=== PATIENT | female | born 1975 | race Caucasian/White ===

== ENCOUNTER 2021-04-04 08:53 | Emergency (ER) | payer OTHER ==
[~2021-04-04] VITALS: Ht 160 cm; Wt 77.1 kg
[~2021-04-04 08:53] MED LIST: ALPRAZOLAM1 MG PO; AMBIEN5 MG PO; BENZTROPINE MESY2 MG PO; DOC-Q-LACE100 MG PO; DOXEPIN HCL100 MG PO; OMEPRAZOLE20 MG PO; OMEPRAZOLE40 MG PO; RISPERDAL0.25 MG PO; RISPERIDONE4 MG PO; SILENOR3 MG PO; ZOLPIDEM TART12.5 MG PO
--- OUTSIDE RECORDS SUMMARY | 2021-04-04 08:56 | XMS ---
PreManage Notification: WOLFGANG BAI Security Inspector Wreath Events No recent Security Events currently on file CRITERIA MET - [facility] - [facility] - [facility] Care Guidelines CARE PROVIDERS CAESAR DUKE Physician Inspector Screen Printing Current PHONE: [phone] Guidelines Source: [facility] Guidelines Date: 12/25/2019 Care Coordination: Member is currently enrolled in Mental Health Services through [employer]. If services are needed through [employer] please call: Ronna [phone] Kash/[facility]; [phone] Crisis [phone] ETaiwo VISIT COUNT (12 MO.) 2 [facility] Shandra [address] [place] [address] TOTAL 3 NOTE: Visits indicate total known visits. ED/UCC VISIT TRACKING (12 MO.) 04/04/2021 08:54 [facility] [place] TYPE: Emergency COMPLAINT: - SKIN PROBLEM BUTTOCKS 07[facility]02/2020 [facility] DIAGNOSES: - Abscess - Cellulitis, unspecified - poss spider bite 05/15/2020 20:31 [facility] DIAGNOSES: - foreign object in vagina - Vaginal Swelling - Other specified noninflammatory disorders of vagina INPATIENT VISIT TRACKING (12 MO.) No inpatient visits to display in this time frame [id number]
[2021-04-04] MEDS ORDERED: METHADONE HCL5 MG PO (09:22)
[2021-04-04] MEDS ORDERED: CLEOCIN HCL300 MG PO (10:08)
== END 2021-04-04 10:19 | disposition home or self-care (01) ==
LOC: ED 08:53
DX: L03.317 Cellulitis of buttock (principal); J45.909 Unspecified asthma, uncomplicated; K21.9 Gastro-esophageal reflux disease without esophagitis; F17.200 Nicotine dependence, unspecified, uncomplicated; Z88.0 Allergy status to penicillin; Z79.899 Other long term (current) drug therapy
CPT/HCPCS: 99283; A9270

== ENCOUNTER 2022-03-18 11:45 | Emergency (ER) | payer OTHER ==
[~2022-03-18] VITALS: Ht 160 cm; Wt 71.7 kg
[~2022-03-18 11:45] MED LIST changes: +CLEOCIN HCL300 MG PO; +METHADONE HCL5 MG PO
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
== END 2022-03-18 14:19 | disposition left against medical advice (07) ==
LOC: ED 11:45
DX: Z02.89 Encounter for other administrative examinations (principal); F43.10 Post-traumatic stress disorder, unspecified; J45.909 Unspecified asthma, uncomplicated; K21.9 Gastro-esophageal reflux disease without esophagitis; F17.200 Nicotine dependence, unspecified, uncomplicated; Z88.1 Allergy status to other antibiotic agents; Z88.2 Allergy status to sulfonamides; Z88.8 Allergy status to other drugs, medicaments and biological substances; Z88.0 Allergy status to penicillin; Z79.899 Other long term (current) drug therapy
CPT/HCPCS: 99282

== ENCOUNTER 2022-12-29 09:50 | Emergency (ER) | payer OTHER ==
[~2022-12-29] VITALS: Ht 165.1 cm; Wt 76.2 kg
[2022-12-29] MEDS ORDERED: STOOL SOFTENER100 MG PO (11:51)
[2022-12-29 11:55] VITALS: BP 104/69
== END 2022-12-29 11:55 | disposition home or self-care (01) ==
LOC: ED 09:50
DX: F22 Delusional disorders (principal); K21.9 Gastro-esophageal reflux disease without esophagitis; J45.909 Unspecified asthma, uncomplicated; F43.10 Post-traumatic stress disorder, unspecified; F17.200 Nicotine dependence, unspecified, uncomplicated; Z88.8 Allergy status to other drugs, medicaments and biological substances; Z88.1 Allergy status to other antibiotic agents; Z88.2 Allergy status to sulfonamides; Z88.0 Allergy status to penicillin; Z79.899 Other long term (current) drug therapy
CPT/HCPCS: 99284

== ENCOUNTER 2023-08-25 09:21 | Emergency (ER) | payer OTHER ==
[~2023-08-25] VITALS: Ht 165.1 cm; Wt 72.6 kg
[~2023-08-25 09:21] MED LIST changes: +ANUSOL-HC25 MG PR; +CLONAZEPAM0.5 MG PO; +STOOL SOFTENER100 MG PO
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
[2023-08-25 11:15] VITALS: BP 96/55
== END 2023-08-25 11:18 | disposition home or self-care (01) ==
LOC: ED 09:21
DX: H69.81 Other specified disorders of Eustachian tube, right ear (principal); F19.959 Other psychoactive substance use, unspecified with psychoactive substance-induced psychotic disorder, unspecified; F20.9 Schizophrenia, unspecified; F43.10 Post-traumatic stress disorder, unspecified; Z79.899 Other long term (current) drug therapy; Z88.1 Allergy status to other antibiotic agents; Z88.2 Allergy status to sulfonamides; Z88.8 Allergy status to other drugs, medicaments and biological substances
CPT/HCPCS: 99283

== ENCOUNTER 2024-05-19 19:00 | Emergency (ER) | payer OTHER ==
[~2024-05-19] VITALS: Ht 165.1 cm; Wt 80.0 kg
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
[2024-05-19] MEDS ORDERED: GEODON40 MG PO ×2 (19:19→19:43)
[2024-05-19] MEDS ORDERED: RISPERIDONE4 MG PO (19:43)
[2024-05-19 19:53] VITALS: BP 144/83
[2024-05-19] MEDS ORDERED: risperiDONE 2 MG TAB PO ONE (20:00)
[2024-05-19] MEDS ORDERED: ziprasidone HCL 40 MG CAP PO ONE (20:00)
== END 2024-05-19 19:53 | disposition home or self-care (01) ==
LOC: ED 19:00
DX: Z76.0 Encounter for issue of repeat prescription (principal); F17.200 Nicotine dependence, unspecified, uncomplicated; Z88.1 Allergy status to other antibiotic agents; Z88.8 Allergy status to other drugs, medicaments and biological substances; Z79.899 Other long term (current) drug therapy
CPT/HCPCS: 99281

== ENCOUNTER 2024-06-09 08:11 | Emergency (ER) | payer OTHER ==
[~2024-06-09] VITALS: Ht 165.1 cm; Wt 74.2 kg
[~2024-06-09 08:11] MED LIST changes: +GEODON40 MG PO
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
[2024-06-09] MEDS ORDERED: risperiDONE 2 MG TAB PO ONE (09:00)
[2024-06-09] MEDS ORDERED: RISPERIDONE M-TA2 MG PO (09:01)
[2024-06-09 09:06] VITALS: BP 171/120
== END 2024-06-09 09:06 | disposition home or self-care (01) ==
LOC: ED 08:11
DX: R09.A9 Foreign body sensation, other site (principal); J45.909 Unspecified asthma, uncomplicated; K21.9 Gastro-esophageal reflux disease without esophagitis; F20.9 Schizophrenia, unspecified; F17.200 Nicotine dependence, unspecified, uncomplicated; Z88.8 Allergy status to other drugs, medicaments and biological substances; Z88.1 Allergy status to other antibiotic agents; Z88.2 Allergy status to sulfonamides; Z79.899 Other long term (current) drug therapy
CPT/HCPCS: 99282

== ENCOUNTER 2024-07-09 10:56 | Emergency (ER) | payer OTHER ==
[~2024-07-09] VITALS: Ht 165.1 cm; Wt 75.8 kg
[~2024-07-09 10:56] MED LIST changes: +RISPERIDONE M-TA2 MG PO
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
[2024-07-09] MEDS ORDERED: risperiDONE 2 MG TAB PO ONE (14:45)
[2024-07-09] MEDS ORDERED: RISPERDAL2 MG PO (14:50)
[2024-07-09 15:02] VITALS: BP 139/124
== END 2024-07-09 15:06 | disposition home or self-care (01) ==
LOC: ED 10:56
DX: F20.9 Schizophrenia, unspecified (principal); F22 Delusional disorders; J45.909 Unspecified asthma, uncomplicated; K21.9 Gastro-esophageal reflux disease without esophagitis; F17.200 Nicotine dependence, unspecified, uncomplicated; Z91.148 Patient's other noncompliance with medication regimen for other reason; Z88.8 Allergy status to other drugs, medicaments and biological substances; Z88.1 Allergy status to other antibiotic agents; Z88.2 Allergy status to sulfonamides; Z79.899 Other long term (current) drug therapy
CPT/HCPCS: 99283